=== PATIENT | female | born 1990 | race African-American/Black ===

== ENCOUNTER 2021-05-18 09:50 | Emergency (ER) | payer BC ==
[2021-05-18 10:12] VITALS: TEMP 98.2; BMI 37.5
[2021-05-18] MEDS ORDERED: SODIUM CHLORIDE 500 ML IV STA (10:49)
[2021-05-18] MEDS ORDERED: FAMOTIDINE 20 MG/50 ML IVPB 20 MG/50 ML MG IVPB ONE ×2 (10:50→11:13)
[2021-05-18] MEDS ORDERED: MAG HYDROX/AL HYDROX/SIMETH 30 ML UNIT-DOSE CUP PO ONE (10:50)
[2021-05-18] MEDS ORDERED: ACETAMINOPHEN 1000 MG/100 ML VIAL (NON FORMULARY) IVPB ONE (10:51)
[2021-05-18] MEDS ORDERED: ACETAMINOPHEN INJECTION 100 ML IVPB ONE (11:12)
[2021-05-18] MEDS ORDERED: MAG HYDROX/AL HYDROX/SIMETH 30 ML UNIT-DOSE CUP ONE (11:12)
[2021-05-18 11:27] LABS: INR 1.22 (0.83-1.09); PROTHROMBIN TIME (PATIENT) 14.9 SEC (9.7-13.0)
[2021-05-18 11:29] LABS: ACTIVATED PTT 29.9 SECONDS (25.2-36.5)
[2021-05-18 11:38] LABS: CHLORIDE 103 mmol/L (98-107); SODIUM 139 mmol/L (136-145)
[2021-05-18 11:40] LABS: BLOOD UREA NITROGEN 13.4 mg/dL (7-18); CALCIUM 9.8 mg/dL (8.5-10.1)
[2021-05-18 11:41] LABS: ALBUMIN 4.2 g/dl (3.4-5.0); ANION GAP 9 MMOL/L (8-16); CO2 28 mmol/L (21-32); GLUCOSE,RANDOM 71 mg/dL (74-106); LIPASE 653 U/L (73-393); MAGNESIUM 2.1 mg/dL (1.8-2.4)
[2021-05-18 11:44] LABS: BASO % 0.6 % (0-2.0); EOS % 0.5 % (0-4.5); HEMATOCRIT 37.6 % (32.4-45.2); HEMOGLOBIN 11.9 GM/dL (10.7-15.3); LYMPH % 14.6 % (8-40); MCH 21.7 pg (25.7-33.7); MCHC 31.5 g/dl (32.0-36.0); MEAN CELL VOLUME 68.8 fl (80-96); MEAN PLT VOLUME 10.8 fl (7.5-11.1); MONO % 6.5 % (3.8-10.2); NEUT % 77.8 % (42.8-82.8); PLATELET COUNT 293 10^3/uL (134-434); RBC 5.47 M/mm3 (3.60-5.2); RDW 14.9 % (11.6-15.6); SGOT/AST 35 U/L (15-37); SGPT/ALT 26 U/L (13-61); WHITE BLOOD COUNT 11.5 K/mm3 (4.0-10.0)
[2021-05-18 11:46] LABS: ALK PHOS 47 U/L (45-117); BILIRUBIN,TOTAL 0.5 mg/dL (0.2-1); CREATININE 0.9 mg/dL (0.55-1.3); TOT PROT 8.2 g/dl (6.4-8.2)
[2021-05-18] MEDS ORDERED: PANTOPRAZOLE SODIUM 40 MG VIAL IVPUSH ONE (12:23)
[2021-05-18] MEDS ORDERED: THIAMINE HCL 100 MG TABLET (FP) PO ONE (12:24)
[2021-05-18] MEDS ORDERED: FOLIC ACID 1 MG TABLET (FP) PO ONE (12:24)
[2021-05-18] MEDS ORDERED: SODIUM CHLORIDE 1,000 ML IV STA (12:24)
[2021-05-18] MEDS ORDERED: THIAMINE HCL 100 MG TABLET (FP) ONE (12:48)
[2021-05-18] MEDS ORDERED: FOLIC ACID 1 MG TABLET (FP) ONE (12:48)
[2021-05-18] MEDS ORDERED: PANTOPRAZOLE SODIUM 40 MG VIAL ONE (12:49)
[2021-05-18] MEDS ORDERED: LIDOCAINE VISCOUS 2% ORAL/TOP 20 ML UNIT-DOSE CUP MM ONE (13:11)
[2021-05-18] MEDS ORDERED: LIDOCAINE VISCOUS 2% ORAL/TOP 20 ML UNIT-DOSE CUP ONE (13:12)
[2021-05-18 15:33] VITALS: BP 108/82; PULSE 59
== END 2021-05-18 15:33 | disposition home or self-care (01) ==
LOC: JER 09:50
PROC: 3E0333Z Introduction of Anti-inflammatory into Peripheral Vein, Percutaneous Approach (ICD-10-PCS; principal; 2021-05-18)
PROC: 3E033GC Introduction of Other Therapeutic Substance into Peripheral Vein, Percutaneous Approach (ICD-10-PCS; 2021-05-18)
PROC: 3E033GC Introduction of Other Therapeutic Substance into Peripheral Vein, Percutaneous Approach (ICD-10-PCS; 2021-05-18)
PROC: 3E0337Z Introduction of Electrolytic and Water Balance Substance into Peripheral Vein, Percutaneous Approach (ICD-10-PCS; 2021-05-18)
PROC: 3E0337Z Introduction of Electrolytic and Water Balance Substance into Peripheral Vein, Percutaneous Approach (ICD-10-PCS; 2021-05-18)
DX: R10.13 Epigastric pain (principal)
CPT/HCPCS: 36415; 71275-TC; 80053; 82550; 83690; 83735; 84484; 84703; 85025; 85379; 85610; 85730; 93005; 93010; 99285-25; J0131; Q9967